=== PATIENT | female | born 1980 | race Caucasian/White ===

== ENCOUNTER → 2020-02-27 15:10 | Outpatient (BNVA) | payer BC, SELFPAY | PROVIDERS: Family Provider Physician Assistant Medical; PCP Physician Assistant Medical; Referring Provider Dermatology; Visit Provider Dermatology | DX: L91.8 Other hypertrophic disorders of the skin (principal); L82.1 Other seborrheic keratosis; L72.0 Epidermal cyst; R23.8 Other skin changes | CPT/HCPCS: 99203 ==

== ENCOUNTER → 2025-01-08 15:23 | Outpatient (BNVA) | payer BC, SELFPAY | PROVIDERS: Family Provider Physician Assistant Medical; PCP Nurse Practitioner Family; Visit Provider Nurse Practitioner Women's Health | DX: Z12.4 Encounter for screening for malignant neoplasm of cervix (principal) | CPT/HCPCS: 87624 ==